=== PATIENT | female | born 1965 | race Caucasian/White ===

== ENCOUNTER 2017-07-18 06:31 | Day surgery (SDC) | payer BC ==
[~2017-07-18 06:31] MED LIST: Lactated Ringers 1,000 ML IV SCH
--- NOTE | 2017-07-18 07:21 | PCM.PREANE ---
Preanesthetic Assessment - Anesthesia/Transfusion/Family Hx Anesthesia History: Prior Anesthesia Without Reaction Family History of Anesthesia Reaction: No Transfusion History: No Prior Transfusion(s) Intubation History: Unknown - Review of Systems General: No Symptoms Pulmonary: No Symptoms Cardiovascular: No Symptoms Gastrointestinal: No Symptoms, Other (colonoscopy '09 - negative, mother had polyps) Neurological: No Symptoms Other: Reports: None - Physical Assessment O2 Sat by Pulse Oximetry: 96 Respiratory Rate: 16 Vital Signs: Last Vital Signs Temp 36.6 C 07/18/17 06:38 Pulse 63 07/18/17 06:38 Resp 16 07/18/17 06:38 BP 126/60 07/18/17 06:38 Pulse Ox 96 07/18/17 06:38 Height: 1.68 m Weight: 82.554 kg ASA Class: 2 Mental Status: Alert & Oriented x3 Airway Class: Mallampati = 2 Dentition: Reports: Normal Dentition Thyro-Mental Finger Breadths: 3 Mouth Opening Finger Breadths: 3 ROM/Head Extension: Full Lungs: Clear to Auscultation, Normal Respiratory Effort Cardiovascular: Regular Rate, Regular Rhythm - Allergies Allergies/Adverse Reactions: Allergies Allergy/AdvReac Type Severity Reaction Status Date / Time No Known Allergies Allergy Verified 07/14/17 16:35 - Blood Blood Available: No - Anesthesia Plan Pre-Op Medication Ordered: None - Acknowledgements Anesthesia Type Planned: MAC Pt an Appropriate Candidate for the Planned Anesthesia: Yes Alternatives and Risks of Anesthesia Discussed w Pt/Guardian: Yes Pt/Guardian Understands and Agrees with Anesthesia Plan: Yes PreAnesthesia Questionnaire HEENT History: Reports: Other (See Below) Other HEENT History: wears glasses Gastrointestinal History: Reports: None Genitourinary History: Reports: None 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: Neurological History: Reports: Concussion Psychiatric History: Reports: Anxiety, Depression - Past Surgical History Head Surgeries/Procedures: Reports: None GI Surgical History: Reports: Colonoscopy, EGD Female Surgical History: Reports: Hysterectomy - SUBSTANCE USE Smoking Status *Q: Never Smoker Recreational Drug Use History: No - HOME MEDS Home Medications: Home Meds ALPRAZolam [Alprazolam] 0.5 mg PO TID PRN 07/14/17 [History] Cinnamon Bark [Cinnamon] 500 mg PO DAILY 07/14/17 [History] L.acidoph,Paracasei, B.lactis [Probiotic] 1 tab PO DAILY 07/14/17 [History] Sertraline HCl 0.5 tab PO DAILY 07/14/17 [History] Turmeric Root Extract [Turmeric] 500 mg PO DAILY 07/14/17 [History] - CURRENT (IN HOUSE) MEDS Current Meds: Current Medications Lactated Ringer's (Ringers, Lactated) 1,000 mls @ 125 mls/hr IV ASDIRECTED [facility] Last Admin: 07/18/17 06:43 Dose: 125 mls/hr
[2017-07-18] MEDS ORDERED: Propofol 200 MG/20 ML SDV ONE (07:26)
[2017-07-18] MEDS ORDERED: Lidocaine 2% 5 ML SDV ONE (07:26)
[2017-07-18] MEDS ORDERED: Midazolam 1 MG/ML 2 ML SDV ONE (07:26)
[2017-07-18] MEDS ORDERED: fentaNYL 100 MCG/2 ML SDV ONE (07:27)
--- NOTE | 2017-07-18 08:28 | PCM.OPNOTE ---
- General Post-Op/Procedure Note Date of Surgery/Procedure: 07/18/17 Operative Procedure(s): Colonoscopy Pre Op Diagnosis: Desire for colorectal cancer screening. Family history of colon polyps. Post-Op Diagnosis: No evidence of neoplasia. Anesthesia Technique: MAC (ASA II) Primary Surgeon: Edy Jain Condition: Good Free Text/Narrative:: Dictation [id number] CPT CODE 44368
[2017-07-18] MEDS ORDERED: Lactated Ringers 1,000 ML IV SCH (08:30)
--- NOTE | 2017-07-18 13:44 | OR ---
SURGEON: Edy Jain M.D. DATE OF PROCEDURE: 07/18/2017 OPERATION PERFORMED: Colonoscopy. ANESTHESIA: MAC. ASA CLASSIFICATION: Two. PREOPERATIVE DIAGNOSES: 1. Family history of colon polyps. 2. Desire for colorectal cancer screening. POSTOPERATIVE DIAGNOSIS: No evidence of neoplasia. DESCRIPTION OF PROCEDURE: The patient was taken to the endoscopy room and positioned on the endoscopy table in the left lateral decubitus position. Time-out was called for appropriate identification of patient and procedure. Monitored anesthesia care was provided. The colonoscope was inserted into the rectum and advanced with minimal difficulty to the cecum where the colonoscope was retroflexed to visualize the ascending colon from below. The colonoscope was then straightened. Cecum had been identified by internal landmarks, ileocecal valve, and external pressure. The colonoscope was then slowly withdrawn. The cecum, ascending colon, hepatic flexure, transverse colon, splenic flexure, descending colon, sigmoid colon, and rectum were very well visualized. No tumors, polyps, diverticula, or angiodysplastic changes were noted anywhere throughout the lower gastrointestinal tract. Once the colonoscope was withdrawn to the rectum, it was retroflexed to visualize the anal orifice from above. No tumors, polyps, or acute hemorrhoidal changes were noted. The colonoscope was then straightened, the rectum aspirated, and the colonoscope removed. The patient tolerated the procedure well and was taken to recovery room in stable condition. LAURA MORRISON /[id number]
== END 2017-07-18 08:52 | disposition home or self-care (01) ==
LOC: MW.SDS 06:31
PROVIDERS: ATTEND Surgery
DX: Z12.11 Encounter for screening for malignant neoplasm of colon (principal); F41.9 Anxiety disorder, unspecified; F32.9 Major depressive disorder, single episode, unspecified; Z90.710 Acquired absence of both cervix and uterus; Z98.890 Other specified postprocedural states; Z79.899 Other long term (current) drug therapy; Z87.891 Personal history of nicotine dependence; Z83.71 Family history of colonic polyps
CPT/HCPCS: 45378; J2250; J3010; J7120; J2704

== ENCOUNTER 2017-07-30 16:56 | Emergency (ER) | payer BC ==
[2017-07-30] MEDS ORDERED: Ondansetron 4 MG/2 ML SDV IVPUSH ONE (17:13)
[2017-07-30] MEDS ORDERED: Ketorolac 30 MG/ML SDV IVPUSH ONE (17:13)
--- NOTE | 2017-07-30 17:14 | EDM.PDOC ---
<Hugo Salgado - Last Filed: 07/30/17 18:15> ED HPI GENERAL MEDICAL PROBLEM - General Chief Complaint: Abdominal Pain Stated Complaint: PELVIC PAIN Time Seen by Provider: 07/30/17 17:14 Source of Information: Reports: Patient - History of Present Illness INITIAL COMMENTS - FREE TEXT/NARRATIVE: HISTORY AND PHYSICAL: History of present illness: [ Patient had a normal colonoscopy last week with Dr. Jain, several days afterwards she began to have some stomach cramping and abdominal pain followed by loose stools on Friday and intermittent abdominal pain since, today she had an episode of pelvic pain that she rated 8 out of 10 nonradiating low abdomen and pelvis she has history of total hysterectomy, she had contacted Dr. Jain's office and he suggested that she come into the emergency room for evaluation No current fever nausea vomiting diarrhea constipation chest pain shortness breath headache dizziness or palpitation no urine symptoms She does continue to have some abdominal discomfort that is mild in nature pelvic pain/discomfort has resolved ] Review of systems: As per history of present illness and below otherwise all systems reviewed and negative. Past medical history: As per history of present illness and as reviewed below otherwise noncontributory. Surgical history: As per history of present illness and as reviewed below otherwise noncontributory. Social history: No reported history of drug or alcohol abuse. Family history: As per history of present illness and as reviewed below otherwise noncontributory. Physical exam: HEENT: Atraumatic, normocephalic, pupils reactive, negative for conjunctival pallor or scleral icterus, mucous membranes moist, throat clear, neck supple, nontender, trachea midline. Lungs: Clear to auscultation, breath sounds equal bilaterally, chest nontender. Heart: S1S2, regular, negative for clicks, rubs, or JVD. Abdomen: Soft, nondistended, nontender. Negative for masses or hepatosplenomegaly. Negative for costovertebral tenderness. Pelvis: Stable nontender. Genitourinary: Deferred. Rectal: Deferred. Extremities: Atraumatic, negative for cords or calf pain. Neurovascular unremarkable. Neuro: Awake, alert, oriented. Cranial nerves II through XII unremarkable. Cerebellum unremarkable. Motor and sensory unremarkable throughout. Exam nonfocal. Diagnostics: [CBC CMP UA amylase lipase troponin EKG ] CT abdomen pelvis with contrast Therapeutics: [Normal saline 500 mL Zofran Toradol ] Impression: Gastroenteritis Post colonoscopy one week Definitive disposition and diagnosis as appropriate pending reevaluation and review of above. - Related Data Allergies Allergy/AdvReac Type Severity Reaction Status Date / Time acetaminophen [From Percocet] Allergy Vomiting Verified 07/30/17 18:33 oxycodone [From Percocet] Allergy Vomiting Verified 07/30/17 18:33 Home Meds: Home Meds ALPRAZolam [Alprazolam] 0.5 mg PO TID PRN 07/14/17 [History] Cinnamon Bark [Cinnamon] 500 mg PO DAILY 07/14/17 [History] L.acidoph,Paracasei, B.lactis [Probiotic] 1 tab PO DAILY 07/14/17 [History] Sertraline HCl 0.5 tab PO DAILY 07/14/17 [History] Turmeric Root Extract [Turmeric] 500 mg PO DAILY 07/14/17 [History] Past Medical History HEENT History: Reports: Other (See Below) Other HEENT History: wears glasses Gastrointestinal History: Reports: None Genitourinary History: Reports: None 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: Neurological History: Reports: Concussion Psychiatric History: Reports: Anxiety, Depression - Past Surgical History Head Surgeries/Procedures: Reports: None GI Surgical History: Reports: Colonoscopy, EGD Female Surgical History: Reports: Hysterectomy Social & Family History - Tobacco Use Smoking Status *Q: Never Smoker - Recreational Drug Use Recreational Drug Use: No Course - Vital Signs Last Recorded V/S: Last Vital Signs Temp 36.7 C 07/30/17 19:49 Pulse 67 07/30/17 19:49 Resp 16 07/30/17 19:49 BP 131/57 L 07/30/17 19:49 Pulse Ox 96 07/30/17 19:49 - Orders/Labs/Meds Orders: Active Orders 24 hr Category Date Time Status EKG Documentation Completion [RC] STAT Care 07/30/17 17:12 Inactive EKG Documentation Completion [RC] STAT Care 07/30/17 17:16 Active Abdomen Pelvis w Cont [CT] Stat Exams 07/30/17 17:12 Taken Pelvis Non OB Comp [US] Stat Exams 07/30/17 19:44 Taken Sodium Chloride 0.9% [Normal Saline] 500 ml Med 07/30/17 17:15 Active IV STAT Medication Orders Sodium Chloride (Normal Saline) 500 mls @ 999 mls/hr IV STAT SUNITA Last Admin: 07/30/17 18:12 Dose: 999 mls/hr Labs: Laboratory Tests 07/30/17 07/30/17 07/30/17 Range/Units 17:25 17:25 18:05 WBC 10.31 (4.0-11.0) K/uL RBC 4.76 (4.30-5.90) M/uL Hgb 14.2 (12.0-16.0) g/dL Hct 41.1 (36.0-46.0) % MCV 86.3 (80.0-98.0) fL MCH 29.8 (27.0-32.0) pg MCHC 34.5 (31.0-37.0) g/dL RDW Std Deviation 39.6 (28.0-62.0) fl RDW Coeff of [place] 13 (11.0-15.0) % Plt Count 222 (150-400) K/uL MPV 9.50 (7.40-12.00) fL Add Manual Diff YES Neutrophils % (Manual) 76 (48.0-80.0) % Lymphocytes % (Manual) 15 L (16.0-40.0) % Monocytes % (Manual) 8 (0.0-15.0) % Eosinophils % (Manual) 1 (0.0-7.0) % Nucleated RBC % 0.0 /100WBC Absolute Seg Neuts 7.8 H (1.4-5.7) Lymphocytes # (Manual) 1.5 (0.6-2.4) Monocytes # (Manual) 0.8 (0.0-0.8) Eosinophils # (Manual) 0.1 (0.0-0.7) Nucleated RBCs # 0 K/uL Sodium 137 (136-145) mmol/L Potassium 4.2 (3.5-5.1) mmol/L Chloride 101 (98-107) mmol/L Carbon Dioxide 27.7 (21.0-32.0) mmol/L BUN 17 (7.0-18.0) mg/dL Creatinine 0.8 (0.6-1.0) mg/dL Est Cr Clr Drug Dosing 78.76 mL/min Estimated GFR (MDRD) > 60.0 ml/min Glucose 84 (74-106) mg/dL Calcium 9.8 (8.5-10.1) mg/dL Total Bilirubin 0.3 (0.2-1.0) mg/dL AST 17 (15-37) U/L ALT 26 (14-63) U/L Alkaline Phosphatase 71 (46-116) U/L Troponin I < 0.050 (0.000-0.056) ng/mL Total Protein 7.5 (6.4-8.2) g/dL Albumin 4.1 (3.4-5.0) g/dL Globulin 3.4 (2.0-3.5) g/dL Albumin/Globulin Ratio 1.2 L (1.3-2.8) Lipase 153 (73-393) U/L Urine Color YELLOW Urine Appearance CLEAR Urine pH 6.0 (5.0-8.0) Ur Specific [place] <= 1.005 (1.001-1.035) Urine Protein NEGATIVE (NEGATIVE) mg/dL Urine Glucose (UA) NEGATIVE (NEGATIVE) mg/dL Urine Ketones NEGATIVE (NEGATIVE) mg/dL Urine Occult Blood SMALL H (NEGATIVE) Urine Nitrite NEGATIVE (NEGATIVE) Urine Bilirubin NEGATIVE (NEGATIVE) Urine Urobilinogen 0.2 (<2.0) EU/dL Ur Leukocyte Esterase TRACE (NEGATIVE) Urine RBC 2-3 (0-2/HPF) Urine WBC 0-2 (0-5/HPF) Ur Epithelial Cells OCCASIONAL (NONE-FEW) Urine Bacteria RARE (NEGATIVE) Meds: Medications Generic Name Dose Route Start Last Admin Trade Name Freq PRN Reason Stop Dose Admin Sodium Chloride 500 mls @ 999 mls/hr 07/30/17 17:15 07/30/17 18:12 Normal Saline IV 999 mls/hr STAT SUNITA Administration Discontinued Medications Generic Name Dose Route Start Last Admin Trade Name Freq PRN Reason Stop Dose Admin Iopamidol 100 ml 07/30/17 19:22 07/30/17 19:23 Isovue-370 (76%) IVPUSH 07/30/17 19:23 100 ml ONETIME STA Administration Ketorolac Tromethamine 30 mg 07/30/17 17:13 07/30/17 18:10 Toradol IVPUSH 07/30/17 17:14 30 mg ONETIME ONE Administration Ondansetron HCl 8 mg 07/30/17 17:13 07/30/17 18:12 Zofran IVPUSH 07/30/17 17:14 8 mg ONETIME ONE Administration Departure - Departure Disposition: Home, Self-Care 01 Clinical Impression: Abdominal pain, Ovarian cyst - Discharge Information Referrals: Jericho Lacy MD [Primary Care Provider] - Forms: ED Department Discharge Additional Instructions: The following information is given to patients seen in the emergency department who are being discharged to home. This information is to outline your options for follow-up care. We provide all patients seen in our emergency department with a follow-up referral. The need for follow-up, as well as the timing and circumstances, are variable depending upon the specifics of your emergency department visit. If you don't have a primary care physician on staff, we will provide you with a referral. We always advise you to contact your personal physician following an emergency department visit to inform them of the circumstance of the visit and for follow-up with them and/or the need for any referrals to a consulting specialist. The emergency department will also refer you to a specialist when appropriate. This referral assures that you have the opportunity for followup care with a specialist. All of these measure are taken in an effort to provide you with optimal care, which includes your followup. Under all circumstances we always encourage you to contact your private physician who remains a resource for coordinating your care. When calling for followup care, please make the office aware that this follow-up is from your recent emergency room visit. If for any reason you are refused follow-up, please contact the [facility] emergency department at and asked to speak to the emergency department charge nurse. Follow-up primary medical doctor and/or OB caption writer as discussed Ultram as prescribed and return as needed as discussed - My Orders Last 24 Hours: My Active Orders 07/30/17 19:44 Pelvis Non OB Comp [US] Stat - Assessment/Plan Last 24 Hours: My Active Orders 07/30/17 19:44 Pelvis Non OB Comp [US] Stat <Filemon Drew - Last Filed: 07/30/17 21:25> ED HPI GENERAL MEDICAL PROBLEM - History of Present Illness INITIAL COMMENTS - FREE TEXT/NARRATIVE: Patient CT scan and ultrasound were ultimately remarkable for small fluid collection in the complex left ovarian cyst. 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 ED EXAM, GENERAL - Physical Exam Exam: See Below (The dictation) Departure - Departure Time of Disposition: 21:24 Condition: Good
[2017-07-30] MEDS ORDERED: Sodium Chloride 0.9% 500 ML IV SCH (17:15)
[2017-07-30 18:10] LABS: CHLORIDE,CL 101 mmol/L (98-107); SODIUM,NA 137 mmol/L (136-145)
[2017-07-30] MEDS ORDERED: Iopamidol 755 Mg/ML 100 ML Bottle IVPUSH STA (19:22)
--- NOTE | 2017-07-31 10:27 | CT ---
EXAM DATE: 07/30/17 PATIENT'S AGE: 51 Patient: LULA MENDEZ Facility: [place], [place] Site . Site : 1965 Study: CT Abdomen/Pelvis [id number]/28/2018 7:02:16 PM Ordering Physician: Tiara Arias Final Report: INDICATION: Lower abdominal pain for several days. Status post colonoscopy 2 weeks ago TECHNIQUE: CT abdomen and pelvis acquired with 100 cc Isovue 370 IV contrast. COMPARISON: None FINDINGS: Lower chest: Unremarkable. Liver: There is a 1.2 cm hypodensity in the right hepatic lobe on image 24 series 201. There are a few subcentimeter hypodensities in the liver which are too small to accurately characterize. Spleen: Unremarkable. Pancreas: Unremarkable. Gallbladder and bile ducts: Unremarkable. Adrenal glands: Unremarkable. Kidneys: Unremarkable. GI tract: Large amount of stool throughout the colon. Appendix is normal. Vascular structures: Unremarkable. Lymph nodes: Unremarkable. Pelvic Organs: Status post hysterectomy. Bilateral tubal ligation clips noted. There is a small amount of free fluid in the pelvis. There is a fluid-filled, tube like structure in the left adnexum measuring 7.4 x 2.4 cm. Bones: Unremarkable for age. IMPRESSION: Fluid-filled tube like structure in the left adnexa may represent a hydrosalpinx or tubo-ovarian abscess. There is a small amount of free fluid within the pelvis. Recommend pelvic ultrasound for further evaluation. Hypodense lesion within the liver. This is nonspecific. Comparison with any prior CT abdomen pelvis recommended. If no prior CTs are available, consider MRI for further characterization. Constipation. Status post hysterectomy. Please note that all CT scans at this facility use dose modulation, iterative reconstruction, and/or weight-based dosing when appropriate to reduce radiation dose to as low as reasonably achievable. Dictated by Lorna Rosas MD @ Jul 30 2017 7:25PM (Electronic Signature) Report Signed by Proxy. MTDD
--- NOTE | 2017-07-31 10:43 | US ---
EXAM DATE: 07/30/17 PATIENT'S AGE: 51 Patient: LULA MENDEZ Facility: [place], [place] Site . Site : 1965 Study: US Pelvis [id number]/28/2018 8:25:50 PM Ordering Physician: Tiara Arias Final Report: INDICATION: Pelvic pain TECHNIQUE: Ultrasound pelvis transabdominal and transvaginal. Endovaginal imaging was performed to better visualize the endometrium and ovaries. Real- time chow scale sonographic images with spectral and color Doppler imaging of the ovaries were obtained. COMPARISON: CT today FINDINGS: Uterus: The patient is status post prior hysterectomy. Right ovary: 2.2 x 1.8 x 1.2 cm. A thick-walled corpus luteal cyst is present and the right ovary. Arterial blood flow seen within the right ovary. Left ovary: 3 x 2.3 x 1.7 cm. There is a complex cyst present within the left ovary measuring 1.9 cm in diameter. A smaller irregular complex cyst is present within the left ovary measuring 1.4 cm. Arterial blood flow seen within the left ovary. Cul-de-sac: A small amount of ascites with low-level internal echoes is seen within the cul-de-sac. IMPRESSIONS: 1. There is a complex cyst present within the left ovary measuring 1.9 cm in diameter. A smaller irregular complex cyst is present within the left ovary measuring 1.4 cm. 2. A small amount of ascites with low-level internal echoes is seen within the cul-de-sac. Dictated by Patel Oh MD @ 07/30/2017 8:49:35 PM Dictated by: Patel Oh MD @ 07/30/2017 20:49:39 (Electronic Signature) Report Signed by Proxy. MOE
== END 2017-07-30 21:34 | disposition home or self-care (01) ==
LOC: MW.ED 16:56
DX: N83.202 Unspecified ovarian cyst, left side (principal); K52.9 Noninfective gastroenteritis and colitis, unspecified; Z88.5 Allergy status to narcotic agent; Z79.899 Other long term (current) drug therapy
CPT/HCPCS: 36415; 74177; 76856; 80053; 81001; 83690; 84484; 85025; 93005; 96361; 96374; 96375; 99284; J1885; J2405; J7040; Q9967; 99283

== ENCOUNTER 2020-04-20 21:12 | Emergency (ER) | payer BC ==
[2020-04-20] MEDS ORDERED: Lactated Ringers 1,000 ML IV ONE (22:03)
[2020-04-20 22:21] LABS: CARBON DIOXIDE,CO2 24.7 mmol/L (21.0-32.0); POTASSIUM,K 3.2 mmol/L (3.5-5.1)
--- NOTE | 2020-04-20 22:49 | EDM.PDOC ---
ED HPI GENERAL MEDICAL PROBLEM - General Chief Complaint: Cardiovascular Problem Stated Complaint: ELEVATED HEART RATE,BLOOD PRESSURE Time Seen by Provider: 04/20/20 22:02 Source of Information: Reports: Patient History Limitations: Reports: No Limitations - History of Present Illness INITIAL COMMENTS - FREE TEXT/NARRATIVE: 54-year-old female with history of anxiety presents feeling shaky after eating sushi, associated with palpitation, lightheadedness and tingling in the tongue. Checked her blood pressure after symptom onset and noted higher than normal blood pressure. Her symptoms have improved. She denies shortness of breath, vomiting, sweats, chest pain. She admits to feeling nauseous. ROS: A 10-point review of systems, other than pertinent positives and negatives as stated per HPI, is otherwise negative Past medical history: No additional pertinent history Past Surgical history: No additional pertinent history Social history: No additional pertinent history Family history: No additional pertinent history PHYSICAL EXAM General: AOx4, GCS = 15, No distress HEENT: dry mucous membrane Neck: supple, no meningismus, no Kernig or Brudzinski Cardiac: S1S2 RRR Respiratory: CTAB, no crackles or rales, no wheezing Abdomen: Soft, nontender, no rebound or guarding, nondistended, no pulsatile mass. Back: nontender Musculoskeletal: NVI distally, no deformity Neuro: No focal deficits, CN 2 - 12 WNL. - Related Data Allergies Allergy/AdvReac Type Severity Reaction Status Date / Time acetaminophen [From Percocet] Allergy Vomiting Verified 04/20/20 21:21 oxycodone [From Percocet] Allergy Vomiting Verified 04/20/20 21:21 Home Meds: Home Meds ALPRAZolam [Alprazolam] 0.5 mg PO TID PRN 07/14/17 [History] Turmeric Root Extract [Turmeric] 500 mg PO DAILY 07/14/17 [History] Magnesium 1 tab PO DAILY 04/20/20 [History] Multivitamin [Multivitamins] 1 tab PO DAILY 04/20/20 [History] Past Medical History HEENT History: Reports: Other (See Below) Other HEENT History: wears glasses Gastrointestinal History: Reports: None Genitourinary History: Reports: None [employer] History: Reports: Neurological History: Reports: Concussion Psychiatric History: Reports: Anxiety, Depression - Infectious Disease History Infectious Disease History: Reports: Chicken Pox - Past Surgical History Head Surgeries/Procedures: Reports: None GI Surgical History: Reports: Colonoscopy, EGD Female Surgical History: Reports: Hysterectomy Social & Family History - Family History Family Medical History: No Pertinent Family History Endocrine/Metabolic: Reports: Diabetes, Type I - Tobacco Use Tobacco Use Status *Q: Never Tobacco User - Caffeine Use Caffeine Use: Reports: Coffee - Recreational Drug Use Recreational Drug Use: No ED ROS GENERAL - Review of Systems Review Of Systems: See Below (see dictation) ED EXAM, GENERAL - Physical Exam Exam: See Below (see dictation) #1 Interpretation EKG Interpretation Comments: Heart rate = 88 bpm, normal sinus rhythm, normal QRS interval, no STEMI. EKG and rhythm strip interpreted by me at 2123 Course - Vital Signs Last Recorded V/S: Last Vital Signs Temp 97.9 F 04/20/20 21:18 Pulse 92 04/20/20 21:18 Resp 16 04/20/20 21:18 BP 167/88 H 04/20/20 21:18 Pulse Ox 99 04/20/20 21:18 - Orders/Labs/Meds Orders: Active Orders 24 hr Category Date Time Status Cardiac Monitoring [RC] . DIRECTED Care 04/20/20 22:03 Active EKG 12 Lead [EKG Documentation Completion] [RC] STAT Care 04/20/20 21:25 Active Pulse Oximetry [RC] ASDIRECTED Care 04/20/20 22:03 Active Labs: Laboratory Tests 04/20/20 04/20/20 04/20/20 Range/Units 21:35 21:35 21:35 WBC 8.47 (4.0-11.0) K/uL RBC 4.95 (4.30-5.90) M/uL Hgb 14.9 (12.0-16.0) g/dL Hct 44.6 (36.0-46.0) % MCV 90.1 (80.0-98.0) fL MCH 30.1 (27.0-32.0) pg MCHC 33.4 (31.0-37.0) g/dL RDW Std Deviation 41.0 (28.0-62.0) fl RDW Coeff of Chago 13 (11.0-15.0) % Plt Count 232 (150-400) K/uL MPV 9.80 (7.40-12.00) fL Neut % (Auto) 62.2 (48.0-80.0) % Lymph % (Auto) 30.8 (16.0-40.0) % [place] % (Auto) 4.8 (0.0-15.0) % Eos % (Auto) 1.8 (0.0-7.0) % Baso % (Auto) 0.4 (0.0-1.5) % Neut # (Auto) 5.3 (1.4-5.7) K/uL Lymph # (Auto) 2.6 H (0.6-2.4) K/uL [place] # (Auto) 0.4 (0.0-0.8) K/uL Eos # (Auto) 0.2 (0.0-0.7) K/uL Baso # (Auto) 0.0 (0.0-0.1) K/uL Nucleated RBC % 0.0 /100WBC Nucleated RBCs # 0 K/uL Sodium 141 (136-145) mmol/L Potassium 3.2 L (3.5-5.1) mmol/L Chloride 102 (98-107) mmol/L Carbon Dioxide 24.7 (21.0-32.0) mmol/L BUN 19 H (7.0-18.0) mg/dL Creatinine 1.0 (0.6-1.0) mg/dL Est Cr Clr Drug Dosing 60.91 mL/min Estimated GFR (MDRD) 58.0 ml/min Glucose 177 H (74-106) mg/dL Calcium 9.4 (8.5-10.1) mg/dL Phosphorus 3.9 (2.6-4.7) mg/dL Magnesium 2.2 (1.8-2.4) mg/dL Total Bilirubin 0.2 (0.2-1.0) mg/dL AST 19 (15-37) IU/L ALT 28 (14-63) IU/L Alkaline Phosphatase 101 (46-116) U/L Troponin I < 0.050 (0.000-0.056) ng/mL Total Protein 7.9 (6.4-8.2) g/dL Albumin 4.5 (3.4-5.0) g/dL Globulin 3.4 (2.6-4.0) g/dL Albumin/Globulin Ratio 1.3 (0.9-1.6) 04/20/20 Range/Units 23:55 WBC (4.0-11.0) K/uL RBC (4.30-5.90) M/uL Hgb (12.0-16.0) g/dL Hct (36.0-46.0) % MCV (80.0-98.0) fL MCH (27.0-32.0) pg MCHC (31.0-37.0) g/dL RDW Std Deviation (28.0-62.0) fl RDW Coeff of Chago (11.0-15.0) % Plt Count (150-400) K/uL MPV (7.40-12.00) fL Neut % (Auto) (48.0-80.0) % Lymph % (Auto) (16.0-40.0) % [place] % (Auto) (0.0-15.0) % Eos % (Auto) (0.0-7.0) % Baso % (Auto) (0.0-1.5) % Neut # (Auto) (1.4-5.7) K/uL Lymph # (Auto) (0.6-2.4) K/uL [place] # (Auto) (0.0-0.8) K/uL Eos # (Auto) (0.0-0.7) K/uL Baso # (Auto) (0.0-0.1) K/uL Nucleated RBC % /100WBC Nucleated RBCs # K/uL Sodium (136-145) mmol/L Potassium (3.5-5.1) mmol/L Chloride (98-107) mmol/L Carbon Dioxide (21.0-32.0) mmol/L BUN (7.0-18.0) mg/dL Creatinine (0.6-1.0) mg/dL Est Cr Clr Drug Dosing mL/min Estimated GFR (MDRD) ml/min Glucose (74-106) mg/dL Calcium (8.5-10.1) mg/dL Phosphorus (2.6-4.7) mg/dL Magnesium (1.8-2.4) mg/dL Total Bilirubin (0.2-1.0) mg/dL AST (15-37) IU/L ALT (14-63) IU/L Alkaline Phosphatase (46-116) U/L Troponin I < 0.050 (0.000-0.056) ng/mL Total Protein (6.4-8.2) g/dL Albumin (3.4-5.0) g/dL Globulin (2.6-4.0) g/dL Albumin/Globulin Ratio (0.9-1.6) Meds: Medications Discontinued Medications Generic Name Dose Route Start Last Admin Trade Name Freq PRN Reason Stop Dose Admin Lactated Ringer's 1,000 mls @ 999 mls/hr 04/20/20 22:03 04/20/20 22:24 Ringers, Lactated IV 04/20/20 23:03 999 mls/hr .BOLUS ONE Administration - Re-Assessments/Exams Free Text/Narrative Re-Assessment/Exam: 04/21/20 00:44 After prolonged observation in the ER, the patient improved and is currently stable for discharge. I performed a repeat exam and did not appreciate new abnormal findings. Patient exhibits normal vital signs and has a normal gait on road test. I advised the patient to return to the ER for reevaluation if symptoms worsened, including fever, worsening pain, or any other worrisome symptoms. I instructed the patient to follow up with Cardiology Dr. Gorman within 2-3 days. MEDICAL DECISION MAKING: I reviewed the patients past medical records, lab and radiographic findings. I discussed the case with the patient. My differential diagnosis includes but is not limited to: ACS, pneumonia, PE, pneumothorax, chest wall pain, pulmonary edema/CHF, aortic dissection, pericarditis, intra-abdominal process. Given the EKG and clinical history, I do not suspect pericarditis. There is no evidence of pneumothorax or infiltrate on CXR. Aortic dissection was considered, however the presenting symptoms were uncharacteristic of aortic dissection. Chest X-ray shows no evidence of mediastinal widening and there are strong, equal and symmetric pulses. Given the current presentation, I do not suspect aortic dissection. The patients history, chest X-ray, and exam do not suggest pulmonary edema/congestive heart failure. Pulmonary embolism was considered but felt unlikely due to the compendium of presenting elements leading to a low pre-test probability followed by a negative PERC rule. All 8 of the rule out PERC criteria were present including: Age<50, HR <100, O2 sat > 94%, no recent trauma/surgery, no hemoptysis, no exogenous hormone use, no clinical signs suggestive of DVT, no hx DVT/PE. Given the above, there is a <2% risk of PE and I feel that no further diagnostic testing is needed. Intra- abdominal pathology felt unlikely given benign/non tender abdominal exam. Acute coronary syndrome was considered but there are negative serial biomarkers, no acute ischemic EKG changes, and the patient has a low HEART score. The HEART pathway was utilized and 2 sets of troponin by 2 hours, did not demonstrate any changes or uptrending. Their EKG was nonischemic. Studies demonstrate this patient has a 30 day MACE score of 1.7%. Based on this, I feel that there is low risk for short-term major adverse cardiac event. I have discussed this with the patient and reviewed options for inpatient and outpatient management. The patient verbalizes an excellent understanding of the above including presence of small risk of short-term major adverse cardiac event even in the setting of low HEART score, negative cardiac biomarker, and compendium of elements of this presentation. The patient wishes to pursue further workup on as an outpatient. Departure - Departure Time of Disposition: 00:47 Disposition: Home, Self-Care 01 Condition: Good Clinical Impression: Palpitations, Chest pain Instructions: Nonspecific Chest Pain, Adult, Palpitations Referrals: Shital Santiago MD [Physician] - 3 Days Jericho Lacy MD [Primary Care Provider] - 1 Week Forms: ED Department Discharge Additional Instructions: The need for follow-up, as well as the timing and circumstances, are variable depending upon the specifics of your emergency department visit. If you don't have a primary care physician on staff, we will provide you with a referral. We always advise you to contact your personal physician following an emergency department visit to inform them of the circumstance of the visit and for follow-up with them and/or the need for any referrals to a consulting specialist. The emergency department will also refer you to a specialist when appropriate. This referral assures that you have the opportunity for follow-up care with a specialist. All of these measure are taken in an effort to provide you with optimal care, which includes your follow-up. Under all circumstances we always encourage you to contact your private patricia sician who remains a resource for coordinating your care. When calling for follow-up care, please make the office aware that this follow-up is from your recent emergency room visit. If for any reason you are refused follow-up, please contact the [facility] Emergency Department at and asked to speak to the emergency department charge nurse. If you do not have a primary care doctor, please follow up with the clinics below within 3-5 days. [facility] [address] [place] [address] [facility] [address] [place] [id number] Sepsis Event Note (ED) - Evaluation Sepsis Screening Result: No Definite Risk - Focused Exam Vital Signs: Vital Signs Temp Pulse Resp BP Pulse Ox 04/20/20 21:18 97.9 F 92 16 167/88 H 99 - My Orders Last 24 Hours: My Active Orders 04/20/20 21:25 EKG 12 Lead [EKG Documentation Completion] [RC] STAT 04/20/20 22:03 Cardiac Monitoring [RC] . DIRECTED Pulse Oximetry [RC] ASDIRECTED - Assessment/Plan Last 24 Hours: My Active Orders 04/20/20 21:25 EKG 12 Lead [EKG Documentation Completion] [RC] STAT 04/20/20 22:03 Cardiac Monitoring [RC] . DIRECTED Pulse Oximetry [RC] ASDIRECTED
--- NOTE | 2020-04-20 22:55 | CR ---
Indication: Chest pain Technique: Chest 1 view Comparison: None Findings/Impression: Cardiovascular and mediastinum: Normal heart size with mild aortic tortuosity. Lungs and pleural space: No pleural effusion or pneumothorax. Minimal right basilar airspace disease consistent with atelectasis or pneumonia. Bones and soft tissues: No acute findings. Dictated by Mata Pappas MD @ Apr 20 2020 10:52PM Signed by Dr. Mata Pappas @ Apr 20 2020 10:53PM
== END 2020-04-21 00:55 | disposition home or self-care (01) ==
LOC: MW.ED 21:12
DX: R00.2 Palpitations (principal); R07.9 Chest pain, unspecified; Z88.6 Allergy status to analgesic agent; Z88.5 Allergy status to narcotic agent
CPT/HCPCS: 36415; 71045; 80053; 83735; 84100; 84484; 85025; 93005; 99285; J7120; 93010; 99284